=== PATIENT | female | born 1985 | race Caucasian/White ===

== ENCOUNTER 2022-08-21 03:22 | Emergency (ER) | payer OTHER ==
[~2022-08-21] VITALS: Ht 170.2 cm; Wt 72.4 kg
[2022-08-21] MEDS ORDERED: ALBUTEROL SULF 2.5 MG/0.5ML(0.5%) NEB SOLN NEB ONE (03:45)
[2022-08-21] MEDS ORDERED: IPRATROPIUM BROM 0.5 MG/2.5ML INH SOL NEB ONE (03:45)
[2022-08-21 03:53] VITALS: BP 138/71
[2022-08-21] MEDS ORDERED: methylPREDNISolone SOD SUCC 125 MG/2 ML VL IM ONE (06:45)
== END 2022-08-21 08:13 | disposition left against medical advice (07) ==
LOC: ER 03:22
DX: J45.901 Unspecified asthma with (acute) exacerbation (principal); Z53.21 Procedure and treatment not carried out due to patient leaving prior to being seen by health care provider
CPT/HCPCS: 94640; J7644